=== PATIENT | female | born 1985 | race Two or more races ===

== ENCOUNTER 2023-06-30 10:22 | Emergency (ER) | payer OTHER ==
[~2023-06-30] VITALS: Ht 162.6 cm; Wt 89.4 kg
== END 2023-06-30 18:49 | disposition home or self-care (01) ==
LOC: ER 10:22
DX: J10.1 Influenza due to other identified influenza virus with other respiratory manifestations (principal); Z20.822 Contact with and (suspected) exposure to COVID-19